=== PATIENT | male | born 1960 | race Caucasian/White ===

== ENCOUNTER 2017-02-16 07:18 | Day surgery (SDC) | payer BC, OTHER ==
[2017-02-16] MEDS ORDERED: Lactated Ringers 1,000 ML IV SCH (07:30)
[2017-02-16] MEDS ORDERED: Propofol 200 MG/20 ML SDV IV ONE (09:10)
--- NOTE | 2017-02-16 09:42 | PCM.OPNOTE ---
- General Post-Op/Procedure Note Date of Surgery/Procedure: 02/16/17 Operative Procedure(s): c scope with bx Findings: transverse colon polyp Pre Op Diagnosis: screening Post-Op Diagnosis: transverse colon polyp Anesthesia Technique: MAC Primary Surgeon: Livan Valentine Anesthesia Provider: Nhan Du Pathology: transverse colon polyp Complications: None Condition: Good Free Text/Narrative:: seen dictation
[2017-02-16 10:19] VITALS: BP 125/75
--- NOTE | 2017-02-16 11:27 | OR ---
DATE OF OPERATION: 02/16/2017 SURGEON: Livan Valentine MD PROCEDURE PERFORMED: Colonoscopy with cold forceps biopsy. PREOPERATIVE DIAGNOSIS: Need for screening C scope. POSTOPERATIVE DIAGNOSIS: Colon polyp of the transverse colon. INDICATIONS FOR PROCEDURE: This is a 56-year-old white male, who presents for screening colonoscopy. He was offered and accepted same. DESCRIPTION OF PROCEDURE: After an excellent IV sedation was administered, digital rectal exam was performed. No marked abnormality was noted. Flexible colonoscope was inserted and advanced to the cecum without difficulty. The prep was good. The following findings were noted. Ascending colon, unremarkable. Transverse colon, a small polypoid lesion, biopsied with cold biopsy forceps and sent for permanent. The remainder of the transverse colon was unremarkable. Descending colon, unremarkable. Sigmoid, unremarkable. Rectum, unremarkable. Colon was deflated, as the scope was removed. The patient tolerated the procedure well and was taken to recovery room in good condition. /[id number] CAROL/GÉNESIS
== END 2017-02-16 10:51 | disposition home or self-care (01) ==
LOC: FB.SDS 07:18
PROVIDERS: ATTEND Surgery
PROC: 0DBL8ZX Excision of Transverse Colon, Via Natural or Artificial Opening Endoscopic, Diagnostic (ICD-10-PCS; principal; 2017-02-16)
DX: Z12.11 Encounter for screening for malignant neoplasm of colon (principal); D12.3 Benign neoplasm of transverse colon; E11.9 Type 2 diabetes mellitus without complications; Z86.718 Personal history of other venous thrombosis and embolism; Z79.01 Long term (current) use of anticoagulants; I10 Essential (primary) hypertension; E03.9 Hypothyroidism, unspecified
CPT/HCPCS: 45380; 82962; 88305; J7120; J2704